=== PATIENT | male | born 1985 | race Hispanic/Latino ===

== ENCOUNTER 2018-06-11 16:10 | Emergency (ER) | payer OTHER ==
[2018-06-11 16:36] LABS: APPEARANCE,URINE Clear (CLEAR); BILIRUBIN,URINE Small (NEGATIVE); COLOR,URINE Dark Yellow (YELLOW); GLUCOSE, URINE (UA) Negative (NEGATIVE); KETONES,URINE Trace mg/dL (NEGATIVE); LEUKOCYTE ESTERASE ,URINE Negative (NEGATIVE); NITRATE,URINE Negative (NEGATIVE); OCCULT BLOOD,URINE Moderate (NEGATIVE); PROTEIN,URINE 300 (NEGATIVE)
[2018-06-11 16:50] LABS: BACTERIA,URINE None Seen /HPF (None Seen); SQUAMOUS EPITHELIAL CELL,UR 0-2 /HPF (0-2); WBC,URINE 0-1 /HPF (0-1)
[2018-06-11 16:52] LABS: BASOPHILS % (AUTO) 0.2 % (0.0-5.0); HEMATOCRIT 44.8 % (42-54); LYMPHOCYTES % (AUTO) 9.4 % (21.0-51.0); MEAN CORPUSCULAR HEMOGLOBIN 31.5 pg (27.0-33.0); MEAN CORPUSCULAR HGB CONC 35.1 g/dL (32.0-36.0); MEAN CORPUSCULAR VOLUME 89.6 fL (79-99); MONOCYTES % (AUTO) 6.9 % (3.0-13.0); NEUTROPHILS % (AUTO) 83.5 % (40.0-77.0); PLATELET COUNT (AUTO) 186 K/uL (130-400); RED CELL DISTRIBUTION WIDTH 12.5 % (11.0-15.5)
[2018-06-11] MEDS ORDERED: SODIUM CHLORIDE 0.9% 1000ML 1,000 ML IV ONE ×2 (16:52→17:18)
[2018-06-11] MEDS ORDERED: ACETAMINOPHEN EXTRA STRENGTH 500 MG TABLET ONE (16:52)
[2018-06-11] MEDS ORDERED: ONDANSETRON HCL 4 MG/2 ML VIAL ONE (16:52)
[2018-06-11 17:07] LABS: CREATININE 1.1 mg/dL (0.5-1.5); POTASSIUM 3.2 mmol/L (3.5-5.1)
[2018-06-11] MEDS ORDERED: POTASSIUM BICARB/CIT AC 25 MEQ TABLET.EFF ONE (17:38)
[2018-06-11] MEDS ORDERED: METRONIDAZOLE 500 MG TABLET ONE (17:53)
== END 2018-06-11 18:55 | disposition home or self-care (01) ==
LOC: EDH 16:10
DX: A09 Infectious gastroenteritis and colitis, unspecified (principal); E87.6 Hypokalemia
CPT/HCPCS: 36415; 80048; 81001; 82270; 83630; 85025; 87040 ×2; 87046; 87088; 96361; 96374; 99284; J2405; J7030 ×2

== ENCOUNTER 2018-12-26 18:35 | Emergency (ER) | payer OTHER ==
[2018-12-26] MEDS ORDERED: SULFAMETHOX-TMP DS 800/160 TAB ONE (19:23)
== END 2018-12-26 20:20 | disposition home or self-care (01) ==
LOC: EDH 18:35
DX: L02.413 Cutaneous abscess of right upper limb (principal); Z72.0 Tobacco use

== ENCOUNTER 2023-03-03 08:50 | Emergency (ER) | payer OTHER ==
[~2023-03-03] VITALS: Ht 172.7 cm; Wt 108.9 kg
[2023-03-03 10:14] VITALS: BP 154/72; PULSE 77; RESP 20; O2SAT 95
[2023-03-03] MEDS ORDERED: KETOROLAC 30MG VIAL (30MG/ML) ONE (13:35)
[2023-03-03] MEDS ORDERED: KETOROLAC 30MG VIAL (30MG/ML) IM ONE (14:00)
== END 2023-03-03 14:04 | disposition home or self-care (01) ==
LOC: EDH 08:50
DX: M25.512 Pain in left shoulder (principal)
CPT/HCPCS: 99284; 73030; 96372 ×2; J1885